=== PATIENT | female | born 1990 | race Caucasian/White ===

== ENCOUNTER 2025-01-21 00:49 | Emergency (ER) | payer MEDICAID ==
[~2025-01-21] VITALS: Ht 172.7 cm; Wt 75.0 kg
[2025-01-21 00:58] VITALS: BP 132/84; PULSE 76; RESP 18; TEMP 36.8; O2SAT 100
[2025-01-21 02:54] LABS: BASOPHILS % 0.6 % (0.0-2.0); EOSINOPHILS % 2.7 % (0.0-5.0); HEMATOCRIT. 38.5 % (36.0-48.0); HEMOGLOBIN. 13.3 g/dL (12.0-16.0); LYMPHOCYTES % 32.1 % (20.0-50.0); MEAN CORPUSCULAR HEMOGLOBIN 32.2 pg (28.0-32.0); MEAN CORPUSCULAR HGB CONC 34.5 g/dL (31.0-37.0); MEAN CORPUSCULAR VOLUME 93.4 fL (81.0-99.0); MEAN PLATELET VOLUME 8.2 fl (7.4-10.4); MONOCYTES % 7.5 % (2.0-8.0); NEUTROPHILS % 57.1 % (40.0-76.0); PLATELET 263 x1000/uL (130-400); RED BLOOD CELL COUNT 4.12 mill/uL (4.2-5.4); RED CELL DISTRIBUTION WIDTH 13.8 % (11.6-14.6); WHITE BLOOD COUNT 8.4 x1000/uL (4.5-11.0)
[2025-01-21 02:57] LABS: CHLORIDE 109 mEq/L (98-107); POTASSIUM 3.6 mEq/L (3.5-5.1); SODIUM 143 mEq/L (136-145)
[2025-01-21 02:58] LABS: CALCIUM 9.2 mg/dL (8.7-10.4); CARBON DIOXIDE 29 mEq/L (21-32)
[2025-01-21 03:03] LABS: CREATININE 0.7 mg/dL (0.6-1.0); GLUCOSE 124 mg/dL (70-105); UREA NITROGEN BLOOD 11 mg/dL (9-23)
[2025-01-21 03:04] LABS: B-HCG QUANTITATIVE 9 mIU/mL (<3)
== END 2025-01-21 04:44 | disposition home or self-care (01) ==
LOC: ER 00:49
DX: O26.891 Other specified pregnancy related conditions, first trimester (principal); Z97.5 Presence of (intrauterine) contraceptive device; Z3A.01 Less than 8 weeks gestation of pregnancy
CPT/HCPCS: 36415; 76801; 80048; 84702; 85025; 86850; 86900; 99284